=== PATIENT | female | born 1985 | race Two or more races ===

== ENCOUNTER 2021-05-03 18:14 | Emergency (ER) | payer OTHER ==
[~2021-05-03] VITALS: Ht 149.9 cm; Wt 61.2 kg
[2021-05-03 22:20] LABS: Urine Amorphous Crystal MOD /hpf (None Seen); Urine Bacteria NONE SEEN /hpf (None Seen); Urine Blood Negative /uL (Negative); Urine Mucus FEW (None Seen); Urine Specific Gravity 1.024 (1.001-1.035); Urine WBC 15 /hpf (0 - 5); Urine WBC Clumps PRESENT /hpf (None Seen)
[2021-05-04] MEDS ORDERED: IBUPROFEN 800 MG TAB PO ONE
[2021-05-04 00:08] VITALS: BP 109/69
== END 2021-05-04 01:34 | disposition home or self-care (01) ==
LOC: ER 18:14
DX: S76.011A Strain of muscle, fascia and tendon of right hip, initial encounter (principal); M79.10 Myalgia, unspecified site; W19.XXXA Unspecified fall, initial encounter; Y93.89 Activity, other specified; Y92.69 Other specified industrial and construction area as the place of occurrence of the external cause; Y99.0 Civilian activity done for income or pay
CPT/HCPCS: 72170; 81001